=== PATIENT | female | born 1930 | race Caucasian/White ===

== ENCOUNTER 2017-03-25 01:09 | Inpatient (IN) | payer OTHER ==
[~2017-03-25] VITALS: Ht 147.3 cm; Wt 68.0 kg
[~2017-03-25 01:09] MED LIST: AMLO5 PO; ASPI81CH; ASPI81CH PO; ATOR20 PO; CELE200 PO; CLON.1 PO; CLON.5 PO; CLOP75 PO; FISH1000; FURO20; Flax Oil1000 MG; HYDCHL25 PO; HYDCOR2.5B TOP; Klor-Con 1010 MEQ PO; LOSA25; LOSARTAN POTAS100 MG PO; LOSARTAN-HCTZ1 EAC2 PO; LOSHYD PO; MAGCHL64ER; Multivitamin1 EAC1 PO; OLMESARTAN; OMEP10ER; OMEPRAZOLE MAGN20 MG PO; OXYACE7.5T PO; OXYB5 PO; OXYC1TAB11 PO; PERCOCET PO; Sudogest60 MG PO; TELM80/12.5; TRAM50 PO; TUMS X-STR300 MG; XARELTO15 MG PO; ZOLP10 PO; [UNRECOGNIZED DRUG - OTHER]; [UNRECOGNIZED DRUG - REMARK]; [UNRECOGNIZED DRUG - REMARK]
[2017-03-25 02:11] LABS: BASOPHILS ABSOLUTE AUTO 0.02 K/mm3 (0.00-0.23); BASOPHILS PERCENT AUTO 0 % (0-2); EOSINOPHILS ABSOLUTE AUTO 0.42 K/mm3 (0.00-0.68); EOSINOPHILS PERCENT AUTO 3 % (0-6); Hemoglobin 9.1 g/dL (11.5-16.0); IMMATURE GRAN ABSOLUTE AUTO 0.06 K/mm3 (0.00-0.10); IMMATURE GRAN PERCENT AUTO 0 % (0-1); LYMPHOCYTES ABSOLUTE AUTO 2.55 K/mm3 (0.84-5.20); LYMPHOCYTES PERCENT AUTO 19 % (21-46); MONOCYTES PERCENT AUTO 7 % (4-13); Mean Corpuscular HGB 31.3 pg (26.0-34.0); Mean Corpuscular HGB Conc 33.7 g/dL (31.5-36.5); Mean Corpuscular Volume 93 fL (80-100); Mean Platelet Volume 10.6 fL (9.1-12.4); NEUTROPHILS ABSOLUTE AUTO 9.43 K/mm3 (1.96-9.15); NEUTROPHILS PERCENT AUTO 71 % (41-73); Platelet Count 523 K/mm3 (150-400); RDW Coefficient Variation 14.3 % (11.7-14.2); Red Blood Cell Count 2.91 M/mm3 (3.80-5.20); White Blood Cell Count 13.38 K/mm3 (4.00-11.30)
[2017-03-25 02:29] LABS: Bun/Creatinine Ratio 39.2 (12.0-20.0); Calcium, Blood 8.7 mg/dL (8.5-10.1); Creatinine, Blood 1.2 mg/dL (0.40-1.00); Potassium, Blood 3.9 mmol/L (3.5-5.5)
[2017-03-25] MEDS ORDERED: PANT20 PO (02:38)
[2017-03-25 05:01] LABS: Hematocrit 27.1 % (33.0-51.0)
[2017-03-25 10:45] LABS: BASOPHILS ABSOLUTE AUTO 0.02 K/mm3 (0.00-0.23); BASOPHILS PERCENT AUTO 0 % (0-2); EOSINOPHILS ABSOLUTE AUTO 0.38 K/mm3 (0.00-0.68); EOSINOPHILS PERCENT AUTO 3 % (0-6); Hematocrit 27.5 % (33.0-51.0); Hemoglobin 9.1 g/dL (11.5-16.0); IMMATURE GRAN ABSOLUTE AUTO 0.05 K/mm3 (0.00-0.10); IMMATURE GRAN PERCENT AUTO 0 % (0-1); LYMPHOCYTES PERCENT AUTO 15 % (21-46); MONOCYTES PERCENT AUTO 8 % (4-13); Mean Corpuscular HGB 31.3 pg (26.0-34.0); Mean Corpuscular HGB Conc 33.1 g/dL (31.5-36.5); Mean Corpuscular Volume 95 fL (80-100); Mean Platelet Volume 11.2 fL (9.1-12.4); NEUTROPHILS ABSOLUTE AUTO 9.65 K/mm3 (1.96-9.15); NEUTROPHILS PERCENT AUTO 74 % (41-73); Platelet Count 547 K/mm3 (150-400); RDW Coefficient Variation 14.4 % (11.7-14.2); RDW Standard Deviation 49.6 fL (35.1-46.3); Red Blood Cell Count 2.91 M/mm3 (3.80-5.20)
[2017-03-25 11:02] LABS: Albumin, Blood 2.5 g/dL (3.4-5.0); Albumin/Globulin Ratio 0.6 (0.8-1.8); Bilirubin, Total 0.5 mg/dL (0.1-1.0); Bun/Creatinine Ratio 38.9 (12.0-20.0); Calcium, Blood 8.9 mg/dL (8.5-10.1); Creatinine, Blood 1.13 mg/dL (0.40-1.00); Globulin, Blood 3.9 g/dL (2.2-4.0); Potassium, Blood 3.5 mmol/L (3.5-5.5); Total Protein, Blood 6.4 g/dL (6.4-8.2)
[2017-03-26 01:41] LABS: Hematocrit 25.2 % (33.0-51.0); Hemoglobin 8.5 g/dL (11.5-16.0)
[2017-03-26 09:39] LABS: Hematocrit 24.7 % (33.0-51.0); Hemoglobin 8.3 g/dL (11.5-16.0)
[2017-03-26 16:42] LABS: Hematocrit 23.3 % (33.0-51.0); Hemoglobin 7.7 g/dL (11.5-16.0)
[2017-03-27 06:20] LABS: BASOPHILS ABSOLUTE AUTO 0.03 K/mm3 (0.00-0.23); BASOPHILS PERCENT AUTO 0 % (0-2); EOSINOPHILS ABSOLUTE AUTO 0.34 K/mm3 (0.00-0.68); EOSINOPHILS PERCENT AUTO 3 % (0-6); Hematocrit 22.4 % (33.0-51.0); Hemoglobin 7.5 g/dL (11.5-16.0); IMMATURE GRAN ABSOLUTE AUTO 0.05 K/mm3 (0.00-0.10); IMMATURE GRAN PERCENT AUTO 1 % (0-1); LYMPHOCYTES ABSOLUTE AUTO 1.95 K/mm3 (0.84-5.20); LYMPHOCYTES PERCENT AUTO 20 % (21-46); MONOCYTES ABSOLUTE AUTO 0.73 K/mm3 (0.16-1.47); MONOCYTES PERCENT AUTO 7 % (4-13); Mean Corpuscular HGB 30.7 pg (26.0-34.0); Mean Corpuscular HGB Conc 33.5 g/dL (31.5-36.5); Mean Platelet Volume 10.3 fL (9.1-12.4); NEUTROPHILS ABSOLUTE AUTO 6.83 K/mm3 (1.96-9.15); NEUTROPHILS PERCENT AUTO 69 % (41-73); Platelet Count 432 K/mm3 (150-400); RDW Coefficient Variation 14.5 % (11.7-14.2); RDW Standard Deviation 47.8 fL (35.1-46.3); Red Blood Cell Count 2.44 M/mm3 (3.80-5.20); White Blood Cell Count 9.93 K/mm3 (4.00-11.30)
[2017-03-27 06:21] LABS: Mean Corpuscular Volume 92 fL (80-100)
[2017-03-27 06:36] LABS: Bun/Creatinine Ratio 42.1 (12.0-20.0); Calcium, Blood 8.2 mg/dL (8.5-10.1); Potassium, Blood 3.6 mmol/L (3.5-5.5)
[2017-04-05] MEDS ORDERED: FINA5 PO (16:42)
[2017-04-05] MEDS ORDERED: TAMS.4ER PO (16:44)
[2017-04-05] MEDS ORDERED: ZESTORETIC 20-251 EA PO (16:47)
[2017-04-05] MEDS ORDERED: Bacid1 EACH PO (16:49)
[2017-04-05] MEDS ORDERED: CILO100 PO (16:51)
[2017-04-05] MEDS ORDERED: METFORMIN HCL500 MG PO (16:53)
[2017-04-05] MEDS ORDERED: METR500 PO ×2 (16:56)
[2017-04-05] MEDS ORDERED: OXYC5 PO (17:00)
[2017-04-05] MEDS ORDERED: HUMULIN 70100 UNIT/2 SC (17:05)
[2017-04-05] MEDS ORDERED: Vancocin HCL1000 MG INJ (17:11)
[2017-04-05] MEDS ORDERED: Ceftriaxone2 G1 (17:15)
[2017-04-16] MEDS ORDERED: Transderm-Scop1 EACH TD (09:31)
[2017-04-16] MEDS ORDERED: LIDO700A20 TOP (09:31)
[2017-04-16] MEDS ORDERED: LORA1 PO (09:32)
[2017-04-16] MEDS ORDERED: DOCU100 PO (09:33)
[2017-04-16] MEDS ORDERED: ACETAMINOP325 MG/10. PO (09:38)
[2017-04-16] MEDS ORDERED: FENTANYL1 EAC2 TOP (09:40)
== END 2017-04-16 12:27 | disposition home or self-care (01) | DRG 813 ==
LOC: ER 01:09 → ERHOLD 01:10 → SURS 01:10 → MEDS 03-26 10:28 → SURS 03-26 10:28 → MEDS 03-30 16:15
PROVIDERS: Emergency Medicine; Internal Medicine
PROC: 0DH63UZ Insertion of Feeding Device into Stomach, Percutaneous Approach (ICD-10-PCS; principal; 2017-03-26)
DX: D68.32 Hemorrhagic disorder due to extrinsic circulating anticoagulants (principal); I69.351 Hemiplegia and hemiparesis following cerebral infarction affecting right dominant side; K92.2 Gastrointestinal hemorrhage, unspecified; D62 Acute posthemorrhagic anemia; I10 Essential (primary) hypertension; Z51.5 Encounter for palliative care; Z85.44 Personal history of malignant neoplasm of other female genital organs; M79.7 Fibromyalgia; E78.5 Hyperlipidemia, unspecified; G89.29 Other chronic pain; M54.5 Low back pain; Z90.710 Acquired absence of both cervix and uterus; Z96.653 Presence of artificial knee joint, bilateral; N28.9 Disorder of kidney and ureter, unspecified; K59.00 Constipation, unspecified; Z53.20 Procedure and treatment not carried out because of patient's decision for unspecified reasons
CPT/HCPCS: 36415; 80048; 80053; 85014; 85018; 85025; 86850; 86900; 86901; 92610; 99285; C9113; G0378; G8996; G8997; J3010; J7030

== ENCOUNTER → 2018-05-31 | Outpatient (CLI) | payer OTHER ==
[~2018-05-31] MED LIST changes: +ACETAMINOP325 MG/10. PO; +Bacid1 EACH PO; +CILO100 PO; +Ceftriaxone2 G1; +DOCU100 PO; +FENTANYL1 EAC2 TOP; +FINA5 PO; +HUMULIN 70100 UNIT/2 SC; +LIDO700A20 TOP; +LORA1 PO; +METFORMIN HCL500 MG PO; +METR500 PO; +OXYC5 PO; +PANT20 PO; +TAMS.4ER PO; +Transderm-Scop1 EACH TD; +Vancocin HCL1000 MG INJ; +ZESTORETIC 20-251 EA PO
[2018-05-31 09:05] LABS: Hematocrit 38.7 % (33.0-51.0); Hemoglobin 12.5 g/dL (11.5-16.0); Mean Corpuscular HGB 29.2 pg (26.0-34.0); Mean Corpuscular HGB Conc 32.3 g/dL (31.5-36.5); Mean Corpuscular Volume 90 fL (80-100); Mean Platelet Volume 12.1 fL (9.1-12.4); Platelet Count 344 K/mm3 (150-400); RDW Coefficient Variation 16.1 % (11.7-14.2); RDW Standard Deviation 53.1 fL (35.1-46.3); Red Blood Cell Count 4.28 M/mm3 (3.80-5.20); White Blood Cell Count 8.28 K/mm3 (4.00-11.30)
== END | disposition home or self-care (01) ==
LOC: LAB UVN 08:33 → EDSTATUS 12:02
DX: D62 Acute posthemorrhagic anemia (principal)
CPT/HCPCS: 85027